=== PATIENT | male | born 1930 | race Caucasian/White ===

== ENCOUNTER → 2017-06-30 | Day surgery (SDC) | payer MEDICARE ==
[2017-06-29 10:20] LABS: BASOPHILS # (AUTO) 0.1 (0.0-0.1); BASOPHILS % 0.9 % (0.0-1.0); EOSINOPHILS # (AUTO) 0.3 (0.0-0.4); HEMATOCRIT 38.3 % (38.2-49.6); HEMOGLOBIN 12.7 g/dL (14.0-18.0); LYMPHOCYTES # (AUTO) 1.6 (1.0-3.2); LYMPHOCYTES % 20.3 % (18.0-39.1); MEAN CORPUSCULAR HEMOGLOBIN 29.7 pg (28-32); MEAN CORPUSCULAR HGB CONC 33.2 g/dL (31-35); MEAN CORPUSCULAR VOLUME 89.5 fL (81-99); MONOCYTES # (AUTO) 0.6 (0.2-0.8); MONOCYTES % 7.6 % (4.4-11.3); NEUTROPHILS # (AUTO) 5.4 (2.1-6.9); NEUTROPHILS % 66.7 % (38.7-80.0); PLATELET COUNT 298 x10e3/uL (140-360); RED BLOOD COUNT 4.28 x10e6/uL (4.3-5.7)
[2017-06-29 10:47] LABS: ANION GAP 11.6 mmol/L (8-16); BLOOD UREA NITROGEN 15 mg/dL (7-26); BUN/CREATININE RATIO 13 (6-25); CARBON DIOXIDE 31 mmol/L (22-29); CHLORIDE 96 mmol/L (98-107); CREATININE, SERUM 1.13 mg/dL (0.72-1.25); EST GLOMERULAR FILTRATION RATE > 60 ML/MIN (60-); GLUCOSE 130 mg/dL (74-118); POTASSIUM 3.6 mmol/L (3.5-5.1); SODIUM 135 mmol/L (136-145)
--- NOTE | 2017-06-29 18:05 | Diagnostic Imaging Report ---
PROCEDURE: Frontal and lateral views of the chest. COMPARISON: None. INDICATIONS: PRE OPERATIVE CHEST XRAY FOR PROSTATE SURGERY FINDINGS: Lines/tubes: None. Lungs: The lungs are hyper inflated and clear. Calcified granuloma in the right midlung. Chronic scarring with right upper lobe calcified granulomas. Bibasilar scarring. There is no evidence of pneumonia or pulmonary edema. Pleura: There is no pleural effusion or pneumothorax. Heart and mediastinum: The heart and the mediastinum are normal. Atherosclerotic calcifications in the aorta. Bones: No acute bony abnormality. Significant degenerative changes in the thoracic spine. IMPRESSION: 1. No acute cardiopulmonary disease. 2. Emphysema. 3. 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 Dictated by: Curtis Vides M.D. on 06/29/2017 at 18:15 Electronically approved by: Curtis Vides M.D. on 06/29/2017 at 18:15
[~2017-06-30] MED LIST: ALPHAGAN P5 ML OD; AMLODIPINE BESY10 MG PO; ARICEPT ODT5 MG PO; ARICEPT10 MG PO; ASPIR 8181 MG PO; ATORVASTATIN CA20 MG PO; AZOPT10 ML OU; BELLADONNA/OPIUM 60 MG SUPP PR ONE; CARAFATE1 GM PO; CARVEDILOL3.125 MG PO; CEFTRIAXONE SOD 1 GM VIAL ONE; CENTRUM SILVER1 EAC3 PO; CIPRO500 MG PO; COMBIGAN EYE DRO5 ML OU; DEXAMETHASONE SOD PHOS INJ 4 MG/ML VIAL ONE; DONEPEZIL; DOXAZOSIN MESYLA1 MG PO; FERROUS SULFAT325 MG PO; FINASTERIDE5 MG PO; FLUTICASONE PRO16 GM; FUROSEMIDE INJ 10 MG/ML 4 ML VIAL ONE; FUROSEMIDE40 MG PO; HYDRALAZINE HC100 MG PO; IOPAMIDOL 610MG/1ML 300 MG/ML VIAL IV ONE; KLOR-CON; KLOR-CON M1010 MEQ PO; LEVOTHYROXINE100 MC1 PO; LEVOTHYROXINE150 MCG PO; LIDOCAINE HCL 2% LOCAL INJ 5 ML SDV VIAL INJ ONE; LOSARTAN POTAS100 MG PO; MELATONIN 5 MG1 EAC1 PO; METOPROLOL TART25 MG PO; METRONIDAZOLE500 MG PO; MUCINEX DM ER1 EACH PO; OMEPRAZOLE40 MG PO; ONDANSETRON HCL INJ 2 MG/ML VIAL ONE; PANTOPRAZOLE SO40 MG PO; PEPCID AC PO; POTASSIUM CHLOR PO; POTASSIUM CHLOR8 ME1 PO; PRINIVIL20 MG PO; PROBIOTIC PO; PROPOFOL IV EMULSION 10 MG/ML 20 ML VIAL ONE; SEVOFLURANE INHAL SOLN 250 ML PEN BTL ONE; SIMVASTATIN10 MG PO; TAMSULOSIN HCL0.4 MG PO; TRAVATAN Z5 ML OU; VITAMIN D31000 UNIT PO; Z VITAMIN E PO; Z.0.FOLIC ACID0.4 MG PO; Z.0.FUROSEMIDE20 MG PO; Z.0.SIMVASTATIN10 MG PO; Z.0.TAMSULOSIN HCL0. PO; Z.0.VITAMIN C1000 MG PO; Z.0.VITAMIN D1000 UN PO; Z.1.LEVOTHYROXINE100 PO; Z.1.LISINOPRIL-HCT1 PO; ZOCOR40 MG PO; [UNRECOGNIZED DRUG - OTHER]; [UNRECOGNIZED DRUG - OTHER] OP
[2017-06-30] MEDS: GENTAMICIN 80MG/NS 100 ML 200 ML IV ONE (07:55)
--- NOTE | 2017-08-19 04:39 | Operative Report ---
DATE OF PROCEDURE: June 30, 2017 PREOPERATIVE DIAGNOSES 1. Obstructive BPH. 2. Urinary tract infections. POSTOPERATIVE DIAGNOSES 1. Obstructive BPH. 2. Urinary tract infections. OPERATIONS PERFORMED: Note these are staged procedures. 1. Cystourethroscopy with bilateral ureteral catheterization and retrograde ureteropyelography (separate procedure performed for the urinary tract infections). 2. Interpretation retrograde ureteropyelography. 3. Supervision of fluoroscopy. No radiologist present. 4. Cystourethroscopy for photoselective vaporization of the prostate utilizing the green light. ANESTHESIA: General. COMPLICATIONS: None. CLINICAL SUMMARY: Campbell Jarquin is an elderly 87-year-old man who has been followed for a right renal mass with watchful waiting protocol. The patient had pneumonia in May of 2017 that resulted in urinary retention as a result of his pneumonia, flu and malaise. The patient had a urodynamic study that showed bladder function and contractility. The patient is brought to the operating room to hopefully render him catheter free and voiding well. Family and the patient are aware of the risks of bleeding, infection, injury to adjacent structures, incontinence, impotence, need for additional procedures, and the elevated anesthetic risks, which they were encouraged to discuss with the anesthesiologist preoperatively. They understood all these risks and elected to proceed. OPERATIVE PROCEDURE IN DETAIL: Informed consent was verified. Campbell Jarquin was properly identified and taken to the operating room and placed on the cystoscopy table in the supine position. Anesthesia was uneventfully begun. The patient was then carefully and gently repositioned in the dorsal lithotomy position with all pressure points well-padded. His genitalia were prepared and draped in the usual sterile fashion. The 22.5-[place] cystoscope sheath with visual obturator in place was atraumatically inserted in the patient's urethra. It was guided down the unremarkable distal urethra through the normal sphincteric region through the prostate bed, which was significant for visually obstructing BPH with kissing lateral lobes. Panendoscopy of the urinary bladder revealed trabeculations, but no tumors, no stones and no diverticula. Normally positioned and configured ureteral orifices were identified. A ureteral catheter was used to cannulate each ureter and retrograde ureteropyelograms were performed. Interpretation of retrograde ureteropyelography. Contrast was instilled in a retrograde fashion bilaterally. There were no tumors. No stones and no diverticula. Unobstructed drainage was observed bilaterally fluoroscopically. I could not discern any distortion by the mass. There was some tortuosity in the proximal right ureter. Photoselective vaporization of the prostate was then carried out from the bladder neck to, but never passed the verumontanum. After delivering [phone] joules of energy over a total laser time of 16 minutes and 16 seconds, the patient had a wide open prostatic bed with excellent hemostasis. The resectoscope was withdrawn. Mcguier catheter was placed. It was irrigated to and fro to ensure it worked properly. A belladonna and opium suppository was placed revealing a smooth prostate that is nonfluctuant. The patient was uneventfully reversed from anesthesia and taken to the recovery room in stable condition. There were no complications to the procedure. He tolerated the procedure well. Explicit postoperative instructions were given. Will follow the patient up in the office at which point in time will perform uroflowmetry and bladder ultrasonography. Job#: [id number]
== END | disposition home or self-care (01) ==
LOC: OR 07:04
PROVIDERS: ATTEND Urology
DX: N40.1 Benign prostatic hyperplasia with lower urinary tract symptoms (principal); N13.8 Other obstructive and reflux uropathy; R39.14 Feeling of incomplete bladder emptying; R35.1 Nocturia; N39.0 Urinary tract infection, site not specified; N28.89 Other specified disorders of kidney and ureter; N32.89 Other specified disorders of bladder; R80.9 Proteinuria, unspecified; N28.1 Cyst of kidney, acquired; K80.20 Calculus of gallbladder without cholecystitis without obstruction; E03.9 Hypothyroidism, unspecified; I11.0 Hypertensive heart disease with heart failure; I50.9 Heart failure, unspecified; K21.9 Gastro-esophageal reflux disease without esophagitis; F03.90 Unspecified dementia, unspecified severity, without behavioral disturbance, psychotic disturbance, mood disturbance, and anxiety; Z01.810 Encounter for preprocedural cardiovascular examination; Z01.812 Encounter for preprocedural laboratory examination; Z01.818 Encounter for other preprocedural examination; Z79.82 Long term (current) use of aspirin; Z86.2 Personal history of diseases of the blood and blood-forming organs and certain disorders involving the immune mechanism; Z87.01 Personal history of pneumonia (recurrent); Z87.891 Personal history of nicotine dependence
CPT/HCPCS: 36415; 52005; 52648; 71020; 74420; 80048; 85025; 93005; J0696; J1100; J1580; J1940; J2001; J2405; Q9967; 71046